=== PATIENT | female | born 1990 | race African-American/Black ===

== ENCOUNTER 2018-11-08 07:49 | Emergency (ER) | payer OTHER, MEDICARE ==
[~2018-11-08] VITALS: Ht 160 cm; Wt 73.0 kg
[2018-11-08] MEDS ORDERED: LORAZEPAM 2MG/ML CPJ IV ONE ×2 (08:30→10:15)
[2018-11-08 08:43] LABS: CHLORIDE 108 mEq/L (98-107)
[2018-11-08 08:45] LABS: BASOPHILS % 0.5 % (0.0-2.0); EOSINOPHILS % 4.2 % (0.0-5.0); HEMATOCRIT. 34.3 % (36.0-48.0); HEMOGLOBIN. 11.6 g/dL (12.0-16.0); LYMPHOCYTES % 40.4 % (20.0-50.0); MEAN CORPUSCULAR HEMOGLOBIN 27.5 pg (28.0-32.0); MEAN CORPUSCULAR VOLUME 81.2 fL (81.0-99.0); MEAN PLATELET VOLUME 8.8 fl (7.4-10.4); MONOCYTES % 7.1 % (2.0-8.0); NEUTROPHILS % 47.8 % (40.0-76.0); PLATELET 233 x1000/uL (130-400); RED BLOOD CELL COUNT 4.22 mill/uL (4.2-5.4); RED CELL DISTRIBUTION WIDTH 17.6 % (11.6-14.6)
[2018-11-08 08:59] LABS: HCG SCREEN NEGATIVE
[2018-11-08 09:10] LABS: *BARBITURATES SCREEN URINE NEGATIVE (NEGATIVE); *BENZODIAZEPINES SCREEN URINE NEGATIVE (NEGATIVE); *COCAINE SCREEN URINE NEGATIVE (NEGATIVE)
[2018-11-08 09:11] LABS: METHADONE URINE SCREEN NEGATIVE (NEGATIVE); PHENCYCLIDINE URINE SCREEN NEGATIVE (NEGATIVE)
[2018-11-08 09:19] LABS: *AMPHETAMINES SCREEN URINE NEGATIVE (NEGATIVE)
[2018-11-08 09:26] LABS: CANNABINOID URINE SCREEN PRESUMTIVE POSITIVE (NEGATIVE); OPIATES URINE SCREEN PRESUMTIVE POSITIVE (NEGATIVE)
[2018-11-08] MEDS ORDERED: KETOROLAC 30MG/ML VIAL IV ONE (10:15)
[2018-11-08] MEDS: KETOROLAC 15MG/ML VIAL IV NR (10:32)
[2018-11-08] MEDS ORDERED: ASPIRIN 81MG TABLET PO ONE (11:00)
[2018-11-08 12:57] VITALS: BP 131/75
== END 2018-11-08 13:09 | disposition short-term general hospital (02) ==
LOC: ER 08:19
DX: R07.89 Other chest pain (principal); F41.9 Anxiety disorder, unspecified; I10 Essential (primary) hypertension
CPT/HCPCS: 36415; 71045; 80053; 80305; 81025; 83880; 84484; 84703; 85025; 85379; 93005; 93970; 96374; 96376; 99285; J1885; J2060; Z7610